=== PATIENT | male | born 1975 | race Caucasian/White ===

== ENCOUNTER 2018-01-29 10:00 | Inpatient (IN) | payer OTHER ==
[~2018-01-29] VITALS: Ht 182.9 cm; Wt 87.1 kg
[2018-02-07] MEDS ORDERED: DOCUSATE SODIU100 MG PO (07:52)
[2018-02-07] MEDS ORDERED: CLONAZEPAM1 MG PO (07:52)
[2018-02-07] MEDS ORDERED: GABAPENTIN800 MG PO (07:52)
[2018-02-07] MEDS ORDERED: PERCOCET 5-3251 EACH PO (07:52)
[2018-02-07] MEDS ORDERED: AMOX-CLAV 875-1 EACH PO (07:52)
[2018-02-07] MEDS ORDERED: MEDROLPACK PO (07:53)
== END 2018-02-08 17:55 | DRG 455 ==
LOC: O/R 02-06 05:47 → SURH 02-06 10:00 → SURG 02-06 19:01
PROVIDERS: Orthopaedic Surgery Orthopaedic Surgery of the Spine
PROC: 0SG0071 Fusion of Lumbar Vertebral Joint with Autologous Tissue Substitute, Posterior Approach, Posterior Column, Open Approach (ICD-10-PCS; 2018-02-06)
PROC: 0SG30AJ Fusion of Lumbosacral Joint with Interbody Fusion Device, Posterior Approach, Anterior Column, Open Approach (ICD-10-PCS; 2018-02-06)
PROC: 0ST40ZZ Resection of Lumbosacral Disc, Open Approach (ICD-10-PCS; 2018-02-06)
PROC: 07DS3ZZ Extraction of Vertebral Bone Marrow, Percutaneous Approach (ICD-10-PCS; 2018-02-06)
PROC: 0SG30A0 Fusion of Lumbosacral Joint with Interbody Fusion Device, Anterior Approach, Anterior Column, Open Approach (ICD-10-PCS; principal; 2018-02-06 16:45)
DX: M47.27 Other spondylosis with radiculopathy, lumbosacral region (principal); M48.07 Spinal stenosis, lumbosacral region; M43.17 Spondylolisthesis, lumbosacral region; M51.37 Other intervertebral disc degeneration, lumbosacral region